=== PATIENT | male | born 1960 | race Caucasian/White ===

== ENCOUNTER → 2018-05-31 | Outpatient (CLI) | payer OTHER ==
[~2018-05-31] MED LIST: AMITRIPTYLINE H10 M3 PO; CLARITIN-D 121 EACH; EFFEXOR XR150 MG; EFFEXOR XR75 MG PO; FELDENE20 MG; HYDROCODON-ACE1 EACH; HYDROCODONE-AP1 EAC6 PO; HYSINGLA ER40 MG PO; LIPITOR10 MG PO; LISINOPRIL-HCT1 EAC1 PO; MOBIC15 MG PO; NEURONTIN 300300 M1 PO; [UNRECOGNIZED DRUG - OTHER]
--- NOTE | ~2018-05-31 | PAINCON ---
[address] [address] PAIN MANAGEMENT CONSULTATION Name: JO ANGELA Room: [facility] MontgomeryRachel#: [id number] Admission: 05/31/18 Attend Phys: Louisa Zapata MD Discharge: Date of : 56 Report #: [id number] THIS REPORT FOR: //name// CC: Jo Zapata DATE OF SERVICE: 05/31/2018 CHIEF COMPLAINT: Low back pain. FOLLOWUP HISTORY: The patient is a 57-year-old gentleman who has been followed by [facility]. The patient continues to have chronic pain. He has had pain for the last 15-20 years. Notes his pain has worsened over time. He was treated by Dr. Johansen who retired. He has been followed by Dr. Jan Florence, board certified pain physician at [facility]. The patient was seen by Dr. Marcel Florence in 2017. This is my first visit with the patient. He was seen for a second opinion at that juncture. The patient has had injections in the past. He has undergone a number of treatments. The patient feels that his pain continues to be problematic. He has had a spinal cord stimulator placed. He has continued to have problems with pain and has difficulty sleeping. The patient has been evaluated by an orthopedic surgeon as well as a neurosurgeon. No true etiology for his pain has been found. Has pain in the area of his hip. The neurosurgeon does not feel that it is a pain generated by lumbar radicular pain. The orthopedic surgeon does not feel that it is problem secondary to his hips. The patient has been given the option to consider an ablation of the facet joints in the low back area. With the patient's current insurance, he is unable to afford this option at this juncture. He has been unable to exercise. Because of the increased pain and lack of exercise, he has gained about 30 pounds over the last 6 months. He was able to walk up to a mile. He is down to less than a mile at this juncture. He was treated in the past with some opioid medications. He is off of the opioid medications at this juncture. He has used gabapentin. He is using 300 mg 2 tablets at bedtime. Also, has used Mobic. He has used Aleve, ibuprofen as well as Tylenol. Rates his pain as an 8/10. Pain is most problematic in his low back, which is radiating down into his right leg into the back of his leg and down into his foot. The outside portion is involved as well as he experiences numbness in his little toe. Notes the pain is worse with activities, changes in weather, walking, sitting, standing, climbing stairs. ALLERGIES: MORPHINE, LATEX. CURRENT MEDICATIONS: Lipitor 10 mg daily, lisinopril, Prilosec, hydrochlorothiazide 20/12.5 b.i.d., Mobic 15 mg daily, Effexor XR 150 mg daily, gabapentin 2 tablets of 300 mg at bedtime. PAST MEDICAL HISTORY: Hypertension, chronic pain, lumbosacral disk disease. [address] [place] [address] PAIN MANAGEMENT CONSULTATION Name: JO ANGELA Room: [facility] Driver#: [id number] Admission: 03/28/19 Attend Phys: Louisa Zapata MD Discharge: Date of : 56 Report #: [id number] Hyperlipidemia, chronic anxiety and depression. PAST SURGICAL HISTORY: Back surgery, nose surgery, wrist surgery, spinal cord stimulator placement. SOCIAL HISTORY: Denies use of tobacco, was self-employed. REVIEW OF SYSTEMS: Good health, fatigue, weakness, wears glasses, hearing loss, back pain, difficulty walking, numbness and tingling sensation, depression. PAIN CLINIC ASSESSMENT AND PQRS: 1. Height 5 feet 10 inches, weight 310 pounds, BMI is 44.5. 2. Vital signs: Blood pressure 140/79, heart rate 73, respiratory rate 16, room air saturation 94%. Temperature 97.5. 3. Pain intensity 8/10. 4. Fall history: The patient has not fallen in the last 3 months. 5. Blood thinner. The patient is not on a blood thinning medication. 6. Hypertension. The patient is being treated for hypertension. 7. Opioids greater than 6 weeks. The patient is not on an opioid regimen at this juncture. 8. Risk assessment tool, moderate for opioid use. 9. Functional assessment tool. 10. Recreational drug use. The patient denies use of recreational drugs. 11. Tobacco: The patient denies use of tobacco. 12. Alcohol: The patient denies use of alcoholic beverages on a regular basis. PHYSICAL EXAMINATION: GENERAL: The patient is a well-developed, well-nourished white male. Appears his stated age. He is alert, oriented x 3. His affect is appropriate. Speech is fluent. HEENT: Normocephalic, atraumatic. Extraocular eye muscles intact. Sclerae nonicteric. Mucous membranes are moist. NECK: Without adenopathy or JVD. The patient is wearing glasses. HEART: Regular rate. ABDOMEN: Protuberant. Bowel sounds present. EXTREMITIES: Upper extremity muscle strength is judged to be 5/5 for the major muscle groups in the upper extremity. Lower extremity, the patient complains of pain and discomfort in the lower portion of his back with pain that is radiating down into his right leg with numbness, tingling involving the outer portion of his foot and numbness along the little toe. IMPRESSION: 1. Chronic low back pain status post spinal cord stimulator placement with a history of revision of the leads. 2. Hypertension. 3. [place] [address] PAIN MANAGEMENT CONSULTATION Name: JO ANGELA Room: [facility]#: [id number] Admission: 05/31/18 Attend Phys: Louisa Zapata MD Discharge: Date of : 56 Report #: [id number] 4. Lumbosacral disk disease. 5. Hyperlipidemia. 6. Chronic anxiety. 7. Depression. RECOMMENDATIONS: We discussed treatment options with the patient. At this juncture, he feels that his pain continues to be problematic. There is an enigma as to what the etiology of his pain he has. He has seen a neurosurgeon who does not feel that the pain is of a lumbar radicular nature. Has been seen by an orthopedic physician who does not feel that the hip needs to be replaced. The patient is quite discombobulated and disenchanted that his pain continues to be problematic. We have explained to the patient that Dr. Florence did manage spinal cord stimulators. I have explained to the patient that Dr. Florence has moved from [place] to [place]. He is no longer involved in the pain clinic. I am not sure that I have much more to provide other than what he has been receiving at his current pain clinic. I would advise that he continue with Dr. Florence. He could continue to make adjustments to his spinal cord stimulator. Again, we have explained that use of opioid medications can be helpful in the short term. They oftentimes lead to less effective pain control over time secondary to development of tolerance. The patient was on these medications for a while and had them discontinued. He is using gabapentin. He is at 600 mg daily. Sometimes the patients do not notice an improvement and pain until they have reached a threshold of 1800 mg. The patient is noticing more difficulty in activities of daily living. I would recommend that he be seen by physical therapy. Water therapy might be helpful in enabling him to increase his range of motion and improve his pain status. The patient is having difficulty sleeping. We explained the benefits of use of Elavil, amitriptyline. This medication can be helpful with pain control as well as improving sleep. He will take 20 mg at bedtime and note its efficacy. We would like to thank you for letting us participate in his care. We hope he continues to improve. By: [id number]. Rubin Zapata MD /POLO
== END ==
LOC: M.PC 09:30
DX: M51.36 Other intervertebral disc degeneration, lumbar region (principal); G89.29 Other chronic pain; I10 Essential (primary) hypertension; E78.5 Hyperlipidemia, unspecified; F41.9 Anxiety disorder, unspecified; F32.9 Major depressive disorder, single episode, unspecified; Z79.899 Other long term (current) drug therapy

== ENCOUNTER 2020-06-02 18:10 | Emergency (ER) | payer OTHER, MEDICARE ==
[~2020-06-02] VITALS: Ht 175.3 cm; Wt 131.5 kg
[2020-06-02] MEDS ORDERED: NORCO5 PO (21:26)
[2020-06-02] MEDS ORDERED: ZANAFLEX4 MG PO (21:26)
[2020-06-02] MEDS ORDERED: MEDROLDOSEPACK PO (21:26)
[2020-06-02 21:46] VITALS: BP 119/69
== END 2020-06-02 21:48 | disposition home or self-care (01) ==
LOC: M.ERS 18:10
DX: M47.896 Other spondylosis, lumbar region (principal); G89.29 Other chronic pain; I10 Essential (primary) hypertension; I48.91 Unspecified atrial fibrillation; E78.5 Hyperlipidemia, unspecified; G47.30 Sleep apnea, unspecified; E66.9 Obesity, unspecified; Z68.41 Body mass index [BMI] 40.0-44.9, adult; Z91.040 Latex allergy status; Z88.5 Allergy status to narcotic agent